=== PATIENT | female | born 1945 | race Caucasian/White ===

== ENCOUNTER 2025-03-05 17:10 | Emergency (ER) | payer OTHER ==
[2025-03-05 18:06] LABS: Absolute Lymphocytes (CBC) 0.8 K/uL (0.7-4.9); Hematocrit 45.6 % (36.0-45.0); Hemoglobin 14.9 g/dL (12.0-15.0); MCH 31.4 pg (27.0-35.0); MCHC 32.7 g/dL (32.0-36.0); MCV 95.9 fL (80-100); MPV 8.7 fL (7.6-11.3); Nucleated RBC Absolute Count 0.1 (0-0); Nucleated Red Blood Cells % 1.2 % (0-0); RBC Red Blood Cell Count 4.76 M/uL (3.86-4.86); White Blood Count 7.50 thou/uL (4.3-10.9)
[2025-03-05 18:11] LABS: PT Prothrombin Time 18.2 SECONDS (10-13.0); PTT, Activated Partial Thromb 31.0 SECONDS (27.2-37.4); Protime INR 1.63
[2025-03-05] MEDS ORDERED: NA CHLORIDE 0.9% 500 ML ONE (18:12)
[2025-03-05] MEDS ORDERED: ONDANSETRON 4 MG/2 ML VIAL ONE (18:12)
[2025-03-05] MEDS ORDERED: MORPHINE 4 MG/ML SYR ONE (18:12)
[2025-03-05 18:19] LABS: ALT/SGPT 24.0 U/L (13-56); AST/SGOT 32.0 U/L (15-37); Albumin 3.2 g/dL (3.4-5.0); Albumin/Globulin Ratio 1.0 (1.1-1.8); Alkaline Phosphatase 58.0 U/L (45-117); Anion Gap 12.4 mEq/L (5.0-15.0); BUN Blood Urea Nitrogen 32.0 mg/dL (7-18); Globulin 3.2 g/dL (2.3-3.5); Glucose Level 107.0 mg/dL (74-106); Lipase 9.0 U/L (13-75); Potassium 4.4 mEq/L (3.5-5.1)
[2025-03-05 18:38] LABS: Blood Morphology Comment NOT SEEN (NOT SEEN); White Blood Cell Scan OK (OK)
--- NOTE | 2025-03-05 18:39 | RAD REPORT ---
EXAMINATION: ONE VIEW CHEST XR CLINICAL INDICATION: DYSPNEA TECHNIQUE: Frontal chest projection is submitted. Examination is limited by patient positioning and t echnique. COMPARISON: No prior exam. FINDINGS: Small right pleural effusion suspected. Significant cardiomegaly is present, pericardial effusion is possible. The lungs appear grossly clear. No displaced fractures identified. Cervical hardware plate noted.
[2025-03-05] MEDS ORDERED: NA CHLORIDE 0.9% 2,000 ML ONE (19:43)
--- NOTE | 2025-03-05 20:03 | ER ---
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 17:10 Coronavirus screen: At this time, the client does not indicate any symptoms associated ar8 with coronavirus-19. Ebola Screen: No symptoms or risks identified at this time. Initial Sepsis Screen: Does the patient meet any 2 criteria? RR > 20 per min. HR > 90 bpm. Yes Does the patient have a suspected source of infection? No. Patient's initial sepsis screen is negative. If YES to both, name of provider notified: Ronny Valdes MD. Risk Assessment: Do you want to hurt yourself or someone else? Patient reports no desire to harm self or others. Onset of symptoms was February 28, 2025. 17:10 Method Of Arrival: EMS: [facility] ar8 17:10 Acuity: MERRILL 3 ar8 Triage Assessment: 17:14 General: Appears uncomfortable, Behavior is calm, cooperative. Pain: Complains of pain ar8 in abdomen diffusely. EENT: No signs and/or symptoms were reported regarding the EENT system. Neuro: Level of Consciousness is awake, alert, obeys commands, Oriented to person, place, time, situation. Cardiovascular: Patient's skin is warm and dry. Respiratory: Airway is patent Respiratory effort is even, unlabored, Respiratory pattern is regular, symmetrical. GI: Abdomen is round distended, Abdomen is tender to palpation in umbilical area, right upper quadrant and left upper quadrant Reports diarrhea, nausea, vomiting, since x5 days. : No signs and/or symptoms were reported regarding the genitourinary system. Derm: No signs and/or symptoms reported regarding the dermatologic system. Musculoskeletal: No signs and/or symptoms reported regarding the musculoskeletal system. Historical: - Allergies: 17:14 No Known Allergies; ar8 - PMHx: 17:14 Atrial fibrillation; Hypertensive disorder; ar8 - Immunization history:: Adult Immunizations not up to date. - Infectious Disease History:: Denies. - Social history:: Smoking status: Patient denies any tobacco usage or history of. - Family history:: not pertinent. - Hospitalizations: : No recent hospitalization is reported. Screenin:20 [facility] ED Fall Risk Assessment (Adult) History of falling in the last 3 months, ar8 including since admission No falls in past 3 months (0 pts) Confusion or Disorientation No (0 pts) Intoxicated or Sedated No (0 pts) Impaired Gait No (0 pts) Mobility Assist Device Used No (0 pt) Altered Elimination No (0 pt) Score/Fall Risk Level 0 - 2 = Low Risk Oriented to surroundings, Maintained a safe environment. Abuse screen: Denies threats or abuse. Nutritional screening: No deficits noted. Tuberculosis screening: No symptoms or risk factors identified. Assessment: 17:20 Reassessment: See triage assessment. ar8 18:00 General: Appears in no apparent distress. comfortable, Behavior is calm, cooperative. db Neuro: Level of Consciousness is awake, alert, obeys commands, Oriented to person, place, time, situation. Respiratory: Airway is patent Respiratory effort is even, unlabored, Respiratory pattern is regular, symmetrical. GI: Abdomen is Bowel sounds present X 4 quads. 18:05 Reassessment: DAUGHTER DOMINGA SOL [phone]. db 18:56 Reassessment: Patient appears in no apparent distress at this time. Patient and/or db family updated on plan of care and expected duration. Pain level reassessed. Patient is alert, oriented x 3, equal unlabored respirations, skin warm/dry/pink. 19:30 General: Appears comfortable, Behavior is calm, cooperative. Pain: Complains of pain in ha1 epigastric area Pain currently is 7 out of 10 on a pain scale. Quality of pain is described as burning. Neuro: Level of Consciousness is awake, alert, obeys commands, Oriented to person, place, situation. Cardiovascular: Capillary refill < 3 seconds Patient's skin is warm and dry. Respiratory: Airway is patent Respiratory effort is even, unlabored, Respiratory pattern is regular, symmetrical. GI: Abdomen is round non-distended, Bowel sounds present X 4 quads. : No signs and/or symptoms were reported regarding the genitourinary system. Derm: Skin is fragile, Skin is normal. Musculoskeletal: Capillary refill < 3 seconds. 20:30 Reassessment: Patient and/or family updated on plan of care and expected duration. Pain ha1 level reassessed. 21:30 Reassessment: Patient and/or family updated on plan of care and expected duration. Pain ha1 level reassessed. Patient is alert, oriented x 3, equal unlabored respirations, skin warm/dry/pink. 22:12 Reassessment: Patient and/or family updated on plan of care and expected duration. Pain ha1 level reassessed. CONTACTED PATIENT'S DAUGHTER DOMINGA AND NOTIFIED OF NEED FOR TRANSFER. DOMINGA GAVE VERBAL AGREEMENT TO TRANSFER. 22:30 Reassessment: Patient and/or family updated on plan of care and expected duration. Pain ha1 level reassessed. Patient is alert, oriented x 3, equal unlabored respirations, skin warm/dry/pink. 23:00 Reassessment: Patient and/or family updated on plan of care and expected duration. Pain ha1 level reassessed. 03/06 00:00 Reassessment: Patient and/or family updated on plan of care and expected duration. Pain ha1 level reassessed. 00:34 Reassessment: REPORT GIVEN TO RECEIVING NURSE ELIOT DENNISON. ha1 01:28 Reassessment: Patient and/or family updated on plan of care and expected duration. Pain ha1 level reassessed. Respiratory: Airway is patent Respiratory effort is even, unlabored, Respiratory pattern is regular, symmetrical. Vital Signs: 03/05 17:10 BP 138 / 120; Pulse 116; Resp 22; Temp 98(O); Pulse Ox 99% on R/A; Weight 99.79 kg; ar8 Height 5 ft. 7 in. ; Pain 12/31; 17:30 BP 134 / 107; Pulse 118; Resp 22; Pulse Ox 98% on NC; db 18:00 BP 133 / 108; Pulse 119; Resp 22; Pulse Ox 96% ; db 18:45 BP 135 / 115; Pulse 117; Resp 18; Pulse Ox 95% on 2 lpm NC; db 20:10 BP 135 / 113; Pulse 115; Resp 20 S; Pulse Ox 98% on 4 lpm NC; ha1 23:02 BP 144 / 118; Pulse 115; Resp 18 S; Pulse Ox 98% on 4 lpm NC; ha1 03/06 00:00 BP 127 / 107; Pulse 108; Resp 18 S; Pulse Ox 98% on 4 lpm NC; ha1 00:30 BP 119 / 90; Pulse 110; Resp 18 S; Pulse Ox 98% on 4 lpm NC; ha1 01:43 BP 126 / 105; Pulse 108; Resp 20 S; Pulse Ox 98% on 4 lpm NC; ha1 03/05 17:10 Body Mass Index 34.46 (99.79 kg, 170.18 cm) ar8 03/05 17:10 Pain Scale: Adult ar8 ED Course: 03/05 17:10 Arm band placed on right wrist. ar8 17:10 Bed in low position. Call light in reach. Side rails up X2. Provided Education on: plan ar8 of care. Client placed on continuous cardiac and pulse oximetry monitoring. NIBP monitoring applied. 17:10 No provider procedures requiring assistance completed. Maintain EMS IV. Dressing ar8 intact. Good blood return noted. Site clean \T\ dry. Gauge \T\ site: 20G L AC. Flushed with 10 mL NS. 17:11 Patient arrived in ED. ar8 17:12 Ronny Valdes MD is Attending Physician. rn 17:12 Asad Jack, ELIOT is Primary Nurse. ar8 17:14 Triage completed. ar8 18:24 XRAY Chest (1 view) In Process Unspecified. EDMS 18:[address] stretcher. db 19:10 Angio Aorta For Dissection In Process Unspecified. EDMS 19:16 Attending Physician role handed off by Ronny Valdes MD mendez 19:16 Charly Whittington MD is Attending Physician. mendez 20:02 Rossana Mary MD is Hospitalizing Provider. mendez 21:00 Inserted saline lock: 24 gauge in left hand, using aseptic technique. Flushed with 10 ha1 mL NS. 21:16 Blood Culture Adult (2) Sent. ha1 22:32 INITIATED TRANSFER WITH MARIANA \T\[id number]. [facility]. kmf 23:55 PT WAS ACCEPTED TO [facility]. ACCEPTING DR. NEWTON \T\2243. ACCEPTING ADMIN RUTHANN anglin Y \T\[id number]. [facility] TO TRANSFER PT. ROOM NUMBER [id number]. 03/06 01:45 Patient transferred, IV remains in place. ha1 Administered Medications: 03/05 18:14 Drug: Ondansetron IVP 4 mg IVP once; over 2 minutes Route: IVP; Site: left antecubital; db 19:00 Follow up: Response: No adverse reaction; Marked relief of symptoms ha1 18:15 Drug: NS 0.9% IV 500 ml 500 ml IV at 1 bolus once; to be given as a bolus over 30 db minutes Volume: 500 ml; Route: IV; Rate: 1 bolus; Site: left antecubital; 19:30 Follow up: Response: No adverse reaction; IV Status: Completed infusion ha1 18:15 Drug: morphine IVP or IV 4 mg IVP once over 4 mins Route: IVP; Infused Over: 4 mins; db Site: left antecubital; 19:00 Follow up: Response: No adverse reaction; Marked relief of symptoms; Pain is decreased; ha1 RASS: Alert and Calm (0) 20:40 Drug: Metoprolol IVP 2.5 mg IVP once; Hold for SBP <100 or HR <60. Route: IVP; Site: [facility] left antecubital; 21:00 Follow up: Response: No adverse reaction; Marked relief of symptoms ha1 20:42 Drug: Famotidine IVP 20 mg IVP once; dilute with 10 mL 0.9% NaCl; give over 2 minutes ha1 Route: IVP; Site: left antecubital; 21:00 Follow up: Response: No adverse reaction; Marked relief of symptoms ha1 20:43 Drug: NS 0.9% IV (30 ml/kg) 30 ml/kg IV at bolus once; Sepsis Protocol; to be given as ha1 a bolus over 90 minutes Route: IV; Rate: bolus; Site: left antecubital; 03/06 01:40 Follow up: Response: No adverse reaction; IV Status: Completed infusion ha1 03/05 21:16 Drug: Piperacillin-Tazobactam IVPB 3.375 grams IVPB once over 60 mins; (mix in NS 100 ha1 mL) Route: IVPB; Infused Over: 60 mins; Site: left antecubital; 22:10 Follow up: Response: No adverse reaction; IV Status: Completed infusion ha1 23:15 Drug: Metoprolol IVP 2.5 mg IVP once; Hold for SBP <100 or HR <60. Route: IVP; Site: [facility] left hand; 03/06 00:00 Follow up: Response: No adverse reaction; Marked relief of symptoms; Cardiac rhythm is ha1 unchanged 03/05 23:31 Drug: Heparin (ME-Bolus No thrombolytic) - HEParin IVP 60 units/kg IVP once; Max 5000 ha1 units {Co-Signature: nikki (Uyen Gonzalez RN).} Route: IVP; Site: left antecubital; 03/06 00:00 Follow up: Response: No adverse reaction ha1 03/05 23:31 Drug: Heparin (ME Drip) 12 units/kg/hr - ([place] [address] units, D5W IV 500 ml) IV at ha1 calculated rate Per protocol; Max initial rate 1000 units/hr {Co-Signature: nikki (Uyen Gonzalez RN).} Route: IV; Rate: calculated rate; Site: left antecubital; 23:33 Follow up: Response: No adverse reaction; IV Status: Infusion continued; INFUSION GOING ha1 AT 1000 UNITS PER HOUR 03/06 00:00 Follow up: Response: No adverse reaction; IV Status: Infusion continued ha1 01:05 Drug: Metoprolol PO 25 mg PO once Route: PO; ha1 01:31 Follow up: Response: No adverse reaction ha1 01:25 Not Given (Physician Discretion): metoprolol2.5 mg IVP once; Hold for SBP <100 or HR ha1 <60. Medication: 03/05 17:20 VIS not applicable for this client. ar8 Intake: Outcome: 20:03 Decision to Hospitalize by Provider. [facility] 22:19 ER care complete, transfer ordered by . [facility] 03/06 01:44 Transferred by ground EMS to [facility], Transfer form completed. ha1 X-rays sent w/ patient. Condition: stable Instructed on the need for transfer, Demonstrated understanding of instructions, 01:45 Patient left the ED. ha1 Signatures: Dispatcher [employer] EDMS Charly Whittington MD MD cha Nieto, Roman, MD MD rn Ayala, Heidy, RN RN ha1 Mildred Larkin RN RN Gayla Reynoso [facility] Asad Jack RN RN ar8 Uyen Gonzalez RN [id number] Corrections: (The following items were deleted from the chart) :03/05 22:12 Reassessment: CONTACTED PATIENT'S DAUGHTER DOMINGA AND NOTIFIED OF NEED FOR ha1 TRANSFER. DOMINGA GAVE VERBAL AGREEMENT TO TRANSFER ha1 03/06 01:44 03/05 23:02 BP 144 / 118; Pulse 115bpm; Resp 18bpm; Spontaneous; Pulse Ox 98% 2 lpm ha1 Nasal Cannula; ha1 03/06 01:44 03/05 20:10 BP 135 / 113; Pulse 115bpm; Resp 20bpm; Spontaneous; Pulse Ox 98% 2 lpm ha1 Nasal Cannula; ha1 03/06 01:44 00:00 BP 127 / 107; Pulse 108bpm; Resp 18bpm; Spontaneous; Pulse Ox 98% 3 lpm Nasal ha1 Cannula; ha1 :44 00:30 BP 119 / 90; Pulse 110bpm; Resp 18bpm; Spontaneous; Pulse Ox 98% 3 lpm Nasal ha1 Cannula; ha1
--- NOTE | 2025-03-05 20:03 | EDPHYS ---
Physician Documentation [facility] Name: Ramy Arias Age: 80 yrs Sex: Female : 1945 Arrival Date: 03/05/2025 Time: 17:10 Bed 3 Private MD: ED Physician Charly Whittington HPI: 03/05 17:37 This 80 yrs old Female presents to ER via EMS with complaints of Abdominal Pain. rn 17:37 Patient reports intermittent abdominal pain for several weeks to maybe 2 months. Has rn had 2 ER visits to [facility] with negative workups and discharged. Daughter states she is getting worse. Patient also states she has noticed some dark stool intermittently. 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 States has had blood work and CT imaging without acute findings recently. Daughter states not eating and drinking and patient feels weak with diffuse abdominal pain. Decreased appetite as well. Historical: - Allergies: 17:14 No Known Allergies; ar8 - PMHx: 17:14 Atrial fibrillation; Hypertensive disorder; ar8 - Immunization history:: Adult Immunizations not up to date. - Infectious Disease History:: Denies. - Social history:: Smoking status: Patient denies any tobacco usage or history of. - Family history:: not pertinent. - Hospitalizations: : No recent hospitalization is reported. ROS: 17:37 Constitutional: Negative for fever, chills, and weight loss, Cardiovascular: Negative rn for chest pain, palpitations, and edema, Respiratory: Negative for shortness of breath, cough, wheezing, and pleuritic chest pain, Abdomen/GI: Positive for abdominal pain with dark stool and vomiting MS/Extremity: Negative for injury and deformity, Neuro: Positive for generalized weakness Exam: 17:37 Constitutional: This is a well developed, well nourished patient who is awake, alert, rn appears uncomfortable Cardiovascular: Tachycardic, irregular Respiratory: Mild tachypnea Abdomen/GI: Soft, mid abdominal tenderness and right lower quadrant tenderness noted. No distention or peritoneal signs. MS/ Extremity: Pulses equal, no cyanosis. Neuro: Awake and alert, GCS 15 20:05 ECG was reviewed by the Attending Physician. mendez Vital Signs: 17:10 BP 138 / 120; Pulse 116; Resp 22; Temp 98(O); Pulse Ox 99% on R/A; Weight 99.79 kg; ar8 Height 5 ft. 7 in. ; Pain 8/10; 17:30 BP 134 / 107; Pulse 118; Resp 22; Pulse Ox 98% on NC; db 18:00 BP 133 / 108; Pulse 119; Resp 22; Pulse Ox 96% ; db 18:45 BP 135 / 115; Pulse 117; Resp 18; Pulse Ox 95% on 2 lpm NC; db 20:10 BP 135 / 113; Pulse 115; Resp 20 S; Pulse Ox 98% on 4 lpm NC; ha1 23:02 BP 144 / 118; Pulse 115; Resp 18 S; Pulse Ox 98% on 4 lpm NC; ha1 03/06 00:00 BP 127 / 107; Pulse 108; Resp 18 S; Pulse Ox 98% on 4 lpm NC; ha1 00:30 BP 119 / 90; Pulse 110; Resp 18 S; Pulse Ox 98% on 4 lpm NC; ha1 01:43 BP 126 / 105; Pulse 108; Resp 20 S; Pulse Ox 98% on 4 lpm NC; ha1 03/05 17:10 Body Mass Index 34.46 (99.79 kg, 170.18 cm) ar8 03/05 17:10 Pain Scale: Adult ar8 MDM: 03/05 17:12 Medical Screening Exam initiated rn 19:01 Transition of care: After a detail discussion of the patient's case, care is rn transferred to Charly Whittington MD. 20:03 Differential diagnosis: AAA, acute coronary syndrome, bowel obstruction, coronary mendez artery disease, diverticulitis, gastritis, gastroesophageal reflux disease, Hepatitis, Mesenteric ischemia or infarction, non-specific abd pain, pancreatitis, Peptic Ulcer Disease, Perf. Duodenal Ulcer, Perf. Gastric Ulcer. Data reviewed: vital signs, nurses notes, EMS record, lab test result(s), EKG, radiologic studies, CT scan, plain films. Consideration of Admission/Observation Patient was admitted/placed on observation. Escalation of care including admission/observation considered. I considered the following discharge prescriptions or medication management in the emergency department Medications were administered in the Emergency Department. See MAR. Independent interpretation of the following test(s) in the Emergency Department EKG: See my EKG interpretation above. Test considered but Not performed: MRI: no mrcp. Historians other than the Patient: pt well informed. Care significantly affected by the following chronic conditions: Hypertension, a fib. Counseling: I had a detailed discussion with the patient and/or guardian regarding the historical points, exam findings, and any diagnostic results supporting the discharge/admit diagnosis, the presence of at least one elevated blood pressure reading (>120/80) during this emergency department visit, lab results, radiology results, the need for further work-up and treatment in the hospital. 03/05 17:21 Order name: CBC with Diff; Complete Time: 18:48 03/05 17:21 Order name: CMP; Complete Time: 18:38 03/05 17:21 Order name: Lipase; Complete Time: 18:38 03/05 17:21 Order name: Lactate w/ 2H reflex if indic.; Complete Time: 18:38 03/05 17:21 Order name: Protime (+inr); Complete Time: 18:38 03/05 17:21 Order name: Ptt, Activated; Complete Time: 18:38 03/05 18:09 Order name: CBC Smear Scan; Complete Time: 18:48 [facility] 03/05 18:27 Order name: Ghost Lactate-NO COLLECT Timer; Complete Time: 21:02 [facility] 03/05 19:17 Order name: Magnesium [facility] 03/05 19:17 Order name: NT PRO-BNP [facility] 03/05 19:17 Order name: Troponin HS [facility] 03/05 20:56 Order name: Blood Culture Adult (2) ha1 03/05 21:48 Order name: Lactate Sepsis 2 HR Follow-up; Complete Time: 22:40 [facility] 03/05 23:10 Order name: Thyroid Stimulating Hormone [facility] 03/05 23:53 Order name: T4 Free [facility] 03/05 17:21 Order name: XRAY Chest (1 view); Complete Time: 18:48 03/05 18:53 Order name: Angio Aorta For Dissection; Complete Time: 21:02 [facility] 03/05 19:17 Order name: EKG; Complete Time: 19:17 [facility] 03/05 17:21 Order name: IV Saline Lock; Complete Time: 18:18 03/05 17:21 Order name: Labs collected and sent; Complete Time: 18:18 03/05 19:17 Order name: Cardiac monitoring; Complete Time: 19:38 [facility] 03/05 19:17 Order name: EKG - Nurse/Tech; Complete Time: 20:08 [facility] 03/05 19:17 Order name: O2 Per Protocol; Complete Time: :38 [facility] 03/05 19:17 Order name: O2 Sat Monitoring; Complete Time: :38 [facility] EC:05 Rate is 123 beats/min. Rhythm is irregularly irregular. QRS Vickery is Normal. MI interval mendez is normal. QRS interval is normal. QT interval is normal. No Q waves. T waves are Normal. No ST changes noted. Clinical impression: Atrial Fibrillation. Interpreted by me. Reviewed by me. Administered Medications: 18:14 Drug: Ondansetron IVP 4 mg IVP once; over 2 minutes Route: IVP; Site: left antecubital; db 19:00 Follow up: Response: No adverse reaction; Marked relief of symptoms ha1 18:15 Drug: NS 0.9% IV 500 ml 500 ml IV at 1 bolus once; to be given as a bolus over 30 db minutes Volume: 500 ml; Route: IV; Rate: 1 bolus; Site: left antecubital; 19:30 Follow up: Response: No adverse reaction; IV Status: Completed infusion ha1 18:15 Drug: morphine IVP or IV 4 mg IVP once over 4 mins Route: IVP; Infused Over: 4 mins; db Site: left antecubital; 19:00 Follow up: Response: No adverse reaction; Marked relief of symptoms; Pain is decreased; ha1 RASS: Alert and Calm (0) 20:40 Drug: Metoprolol IVP 2.5 mg IVP once; Hold for SBP <100 or HR <60. Route: IVP; Site: [facility] left antecubital; 21:00 Follow up: Response: No adverse reaction; Marked relief of symptoms ha1 20:42 Drug: Famotidine IVP 20 mg IVP once; dilute with 10 mL 0.9% NaCl; give over 2 minutes ha1 Route: IVP; Site: left antecubital; 21:00 Follow up: Response: No adverse reaction; Marked relief of symptoms ha1 20:43 Drug: NS 0.9% IV (30 ml/kg) 30 ml/kg IV at bolus once; Sepsis Protocol; to be given as ha1 a bolus over 90 minutes Route: IV; Rate: bolus; Site: left antecubital; 03/06 01:40 Follow up: Response: No adverse reaction; IV Status: Completed infusion 1 03/05 21:16 Drug: Piperacillin-Tazobactam IVPB 3.375 grams IVPB once over 60 mins; (mix in NS 100 ha1 mL) Route: IVPB; Infused Over: 60 mins; Site: left antecubital; 22:10 Follow up: Response: No adverse reaction; IV Status: Completed infusion ha1 23:15 Drug: Metoprolol IVP 2.5 mg IVP once; Hold for SBP <100 or HR <60. Route: IVP; Site: ha left hand; 03/06 00:00 Follow up: Response: No adverse reaction; Marked relief of symptoms; Cardiac rhythm is ha1 unchanged 03/05 23:31 Drug: Heparin (ID-Bolus No thrombolytic) - HEParin IVP 60 units/kg IVP once; Max 5000 ha1 units {Co-Signature: nikki (Uyen Gonzalez RN).} Route: IVP; Site: left antecubital; 03/06 00:00 Follow up: Response: No adverse reaction ha1 03/05 23:31 Drug: Heparin (ID Drip) 12 units/kg/hr - ([place] [address] units, D5W IV 500 ml) IV at ha1 calculated rate Per protocol; Max initial rate 1000 units/hr {Co-Signature: nikki (Uyen Gonzalez RN).} Route: IV; Rate: calculated rate; Site: left antecubital; 23:33 Follow up: Response: No adverse reaction; IV Status: Infusion continued; INFUSION GOING ha1 AT 1000 UNITS PER HOUR 03/06 00:00 Follow up: Response: No adverse reaction; IV Status: Infusion continued ha1 01:05 Drug: Metoprolol PO 25 mg PO once Route: PO; ha1 01:31 Follow up: Response: No adverse reaction ha1 01:25 Not Given (Physician Discretion): metoprolol2.5 mg IVP once; Hold for SBP <100 or HR ha1 <60. 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 - Persistent atrial fibrillation - with rvr(03/05/25 22:19) mendez - Acute kidney failure, unspecified(03/05/25 22:19) mendez - Combined systolic (congestive) and diastolic (congestive) heart failure(03/05/25 mendez 22:19) - Pleural effusion in other conditions classified elsewhere mendez - Essential (primary) hypertension mendez - Severe sepsis without septic shock(03/05/25 22:20) mendez Forms: - Medication Reconciliation Form mendez - SBAR form mendez Critical care time excluding procedures: 03/05 21:01 Critical care time: Bedside Care: 30 minutes, Consultation: 10 minutes, Family mendez Intervention: 10 minutes. Total time: 50 minutes Signatures: Dispatcher [employer] EDCharly Butler MD MD cha Nieto, Roman, MD MD rn Nataliya Lua, RN RN ha1 Mildred Larkin RN RN Asad Gomez RN RN ar8 Uyen Gonzalez RN [id number] Corrections: (The following items were deleted from the chart) 17:22 17:22 CBC+H.LAB.BRZ ordered. EDWV EDMS 17:22 17:22 COMPREHENSIVE METABOLIC PANEL+C.LAB.BRZ ordered. EDWV EDMS 17:22 17:22 LIPASE+C.LAB.BRZ ordered. EDWV EDMS 17:22 17:22 LACTATE+C.LAB.BRZ ordered. EDWV EDMS 17:22 17:22 PROTIME (+INR)+COAG.LAB.BRZ ordered. EDWV EDMS 17:22 17:22 PTT, ACTIVATED+COAG.LAB.BRZ ordered. EDWV EDMS 17:22 17:22 Chest Single View+RAD.RAD.BRZ ordered. EDWV EDMS 18:53 17:22 Abdomen Angio+CT.RAD.BRZ ordered. EDMS EDMS 18:53 18:21 Pelvis Angio ordered. EDWV EDMS 19:17 19:17 MAGNESIUM+C.LAB.BRZ ordered. EDMS EDMS 19:17 19:17 PROBNP+C.LAB.BRZ ordered. EDMS EDMS 19:17 19:17 Troponin High Sensitivity+C.LAB.BRZ ordered. EDMS EDMS 22:12 20:03 Inpatient Admission mendez mendez 22:12 20:03 Rossana Mary mendez mendez 22:12 20:03 Telemetry/MedSurg (Inpatient) mendez mendez 22:12 20:03 Fair mendez mendez 22:12 20:03 new mendez mendez 22:12 20:03 have improved mendez mendez 22:12 20:03 Standard mendez mendez 22:12 20:03 mendez mendez 22:12 20:03 Abdominal pain, Generalized mendez mendez 22:12 20:09 Persistent atrial fibrillation - with rvr mendez mendez 22:12 20:09 Vomiting mendez mendez 22:12 20:09 Abnormal coagulation profile mendez mendez 22:12 20:09 Acute kidney failure, unspecified mendez mendez 22:12 20:25 Severe sepsis without septic shock mendez mendez 22:12 21:03 Other ascites mendez mendez 22:12 21:03 Combined systolic (congestive) and diastolic (congestive) heart failure mendez mendez 22:19 22:[address] [facility] mendez mendez 22:20 22:[address] [facility] mendez mendez 23:08 19:17 BASIC METABOLIC PANEL+C.LAB.BRZ ordered. EDMS EDMS 23:08 19:17 HEPATIC FUNCTION+C.LAB.BRZ ordered. EDMS EDMS 23:10 20:07 THYROID STIMULAT HORMONE+C.LAB.BRZ ordered. EDMS EDMS 03/06 01:45 03/05 22:[address] [facility] mendez ha1
--- NOTE | 2025-03-05 20:23 | RAD REPORT ---
EXAM: CTA of the chest, abdomen and pelvis HISTORY: Chest pain and back pain Celiac artery stenosis, Pain COMPARISON: None TECHNIQUE: Multiple contiguous axial images were obtained a CTA of the chest and abdomen with contras t per aortic dissection protocol. This involves 3D reconstructions, MIPs, volume rendered images and/or shaded surface rendering. One or more of the following dose reduction techniques were used: Au tomated exposure control, adjustment of the mA and/or kV according to patient size, and/or iterative reconstruction. Unless otherwise specified, incidental findings do not require dedicated im aging follow-up. Sagittal and coronal 3-D MIP reformats were performed. FINDINGS: PULMONARY ARTERIES: Normal in caliber without filling defects to suggest pulmonary emboli. ASCENDING THORACIC AORTA: Contrast artifact suspected in the thoracic aorta. The thoracic aorta is n ot dilated. Findings suggest reduced cardiac output. There is severe cardiomegaly present particularly involving the right heart as well as the left atrium. Small pericardial effusion. DESCENDING THORACIC AORTA: Normal caliber without evidence of dissection or aneurysmal dilatation. ABDOMINAL AORTA: Mild atherosclerotic plaquing is present. 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 There is no flow seen in the celiac axis. There is mild flow seen in the left hepatic artery which may be related to collateralization. No flow identified in the splenic artery. SMA: Patent with moderate stenosis at the origin. Mild poststenotic dilatation. TOÑO: Patent RENAL ARTERIES: Single diminutive renal arteries are present bilaterally. MEDIASTINUM: Severe biatrial cardiomegaly is present. Small pericardial effusion. LUNGS: Mild COPD. PLEURAL SPACE: Small bilateral pleural effusions, larger on the right. LIVER: Marked enlargement of the hepatic veins and IVC compatible with passive congestion of the live r.. SPLEEN: Spleen is small in size with surrounding fluid.. PANCREAS: Atrophy of the pancreas is evident.. KIDNEYS: Both kidneys are atrophic.. ADRENALS: Unremarkable. BOWEL: No bowel obstruction or pneumatosis evident.. RETROPERITONEUM: No lymphadenopathy. BONES: Moderate lumbar degenerative changes. ADDITIONAL FINDINGS: [id number] ascites. 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 No visible flow seen in the splenic artery. 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 Severe biatrial cardiomegaly with pericardial effusion and small bilateral pleural effusion. There is contrast artifact suspected in the thoracic aorta suggesting reduced cardiac output. Correla tion with echocardiogram may be of value. Passive congestion of the liver. Right heart failure is likely present. [id number] ascites. Atrophic kidneys and pancreas.
[2025-03-05] MEDS ORDERED: FAMOTIDINE 20 MG/2 ML VIAL IV ONE (20:27)
[2025-03-05] MEDS ORDERED: METOPROLOL TARTRATE 5 MG/5 ML INJ IV ONE ×2 (20:27→23:16)
[2025-03-05] MEDS ORDERED: NA CHLORIDE 0.9% 100 ML ONE (20:50)
[2025-03-05] MEDS ORDERED: PIPERACIL/TAZO 3.375 GM VIAL IV ONE (20:51)
[2025-03-05] MEDS ORDERED: HEPARIN 5000 UNIT/ML 1 ML VIAL ONE (22:41)
[2025-03-05] MEDS ORDERED: HEPARIN/D5W 25,000 UNIT/500 ML BAG IV ONE (22:42)
[2025-03-05 23:30] LABS: Magnesium 1.6 mg/dL (1.6-2.4); NT PRO-BNP 9961.0 pg/mL (<450); Troponin High Sensitivity 35.6 pg/mL (<58.9)
[2025-03-05 23:51] LABS: Thyroid Stimulating Hormone 4.67 uIU/mL (0.358-3.740)
[2025-03-06] MEDS ORDERED: METOPROLOL TAR 25 MG TAB ONE (01:10)
[2025-03-06 11:45] VITALS: TEMP 98
[2025-03-06 11:50] VITALS: O2SAT 98
[2025-03-06 11:58] VITALS: BP 126/105
== END 2025-03-06 01:45 | disposition short-term general hospital (02) ==
LOC: ER 17:10
DX: I74.8 Embolism and thrombosis of other arteries (principal); R65.20 Severe sepsis without septic shock; N17.9 Acute kidney failure, unspecified; R11.10 Vomiting, unspecified; I48.19 Other persistent atrial fibrillation; I50.40 Unspecified combined systolic (congestive) and diastolic (congestive) heart failure; J91.8 Pleural effusion in other conditions classified elsewhere; I10 Essential (primary) hypertension
CPT/HCPCS: 93005; 87040 ×2; 85025; 36415; 83735; 85610; 83605 ×2; 85730; 84443; 84484; 84439; 83690; 80053; 83880; 71275; 74175; 71045; 99285; Q9967; J1644; J2543; J2405; J7040; J7030